=== PATIENT | female | born 1970 | race African-American/Black ===

== ENCOUNTER 2023-04-16 09:54 | Emergency (ER) | payer BC, SELFPAY ==
[2023-04-16 10:00] VITALS: BP 132/91
--- NOTE | 2023-04-16 10:28 | ED.GENMED ---
History of Present Illness
General
Chief Complaint: Chest Pain
Source: patient
Exam Limitations: none
Time Seen by Provider: 04/16/23 10:14
Nursing documentation reviewed up to this point in time: agreed with
Travel History
Have you had any contact with someone who has COVID-19?: No
Do you have any symptoms of coronavirus? Fever > 100 degrees, chills, cough, shortness of breath, sore throat, loss of taste or smell, muscle aches, or headache?: No
History of Present Illness
History of Present Illness:
pt is a 52 y/o F with h/o hypothyroid, borderline dm, on meds for weight loss; recently told she has high cholesterol but didn't start meds
here with left sided chest tightness that began yesterday am around 10 am when she was at work. 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
the symptoms felt like pressure or heaviness/tightness and she thought maybe she just had gas but ultimately didn't 'feel right' and asked her boss if she could go home
she didn't take anything for symptoms which did persist.
she went to sleep and woke up at 3 am (because of insomnia, chrnoic) and had the symptoms then too. she just 'doesn't feel right' and now has pain in her epigastric LUQ and her back
it is not associated with nausea, vomiting, anorexia, diarrhea, fever, chills,, cough. but she does feel it slightly worse with deep breathing
has chronic oncsiptation
last BM today
just upped her mounjaro dose which she has been on since nov 2022 for weight loss.
Past History
Past History
ED Past Medical History: Hypercholesterolemia, Hypothyroidism and Other (Borderline dm)
Review of Systems
Review of Systems
Allergies reviewed?: Yes
All Other Systems: Not applicable
Phy Exam
Physical Exam
Physical Exam:
GENERAL: Alert , in no apparent distress
EYE: pupils equal and reactive
NECK: Supple
ENT: o/p clr, mmm.
CARDIAC: Regular rate and rhythm .
chest wall: notnender, no rash
LUNGS: Clear breath sounds bilaterally, no acute respiratory distress, no wheezes/rales/rhonchi
back: nontender no rash
ABDOMEN: Soft, without focal tenderness, no r/g, no cvat, normal bowel sounds
NEUROLOGICAL: Alert and oriented, no focal neuro deficits
SKIN: Warm and dry, skin intact.
MUSCULOSKELETAL: No edema, well perfused. neg carolina's sign
PSYCH: Normal and appropriate interaction.
Scores
Heart Score for Chest Pain Patients
STEMI patient?: No
History: Slightly or Non-Suspicious
ECG: Normal
Age: >45 - <65 years
Risk Factors: 1 or 2 Risk Factors
Troponin: </= Normal Limit
Heart Score for Chest Pain Patients: 2
Heart Score Risk: 2.5% MACE over next 6 weeks
Course
Orders/Labs/Results
Orders:
Orders
04/16/23 09:56
EKG [Electrocardiogram (*1)] Urgent
Reason for Study: Chest Pain
EKG- Treatment ONCE
04/16/23 10:27
Cardiac Monitoring- Treatment ONCE
TSH Urgent
04/16/23 10:34
Complete Blood Count/With Diff Urgent
Comprehensive Metabolic Panel Urgent
D-Dimer Urgent
Lipase Urgent
Troponin I Urgent
04/16/23 10:36
Add On- LAB Urgent
Tests Added?: TSH
04/16/23 11:16
CR Chest - 2 Views Urgent
Comment:
Reason For Exam: chest tightness
US Abdomen Complete/Upper Urgent
Comment:
Reason For Exam: upper abd pain
04/16/23 11:28
Mag Hydrox/Al Hydrox/Simeth [Maalox] 30 ml Phenobarb/Hyoscy/Atropine/Scop [] 10 ml PO NOW
04/16/23 11:33
Mag Hydrox/Al Hydrox/Simeth [Maalox] 30 ml .ROUTE .STK-MED ONE
Phenobarb/Hyoscy/Atropine/Scop [] 10 ml .ROUTE .STK-MED ONE
Abnormal Lab Results
04/16/23
10:34
Absolute Monos (auto) 0.7 H 10^3/uL
(0.1-0.6)
AST 40 H U/L
(14-36)
ALT 40 H U/L
(0-35)
04/16/23 10:34
04/16/23 10:34
Vital Signs
Initial and Last Documented VS:
Initial Vital Signs
Temp Pulse Resp BP Pulse Ox
98 F 99 16 132/91 99
04/16/23 10:00 04/16/23 10:00 04/16/23 10:00 04/16/23 10:00 04/16/23 10:00
Last Documented Vital Signs
Temp Pulse Resp BP Pulse Ox
98 F 88 21 116/79 98
04/16/23 10:00 04/16/23 12:30 04/16/23 11:30 04/16/23 12:30 04/16/23 11:30
MDM/Problems Addressed
Differential Diagnosis Includes:
chest wall pain, gerd, ACS, PE, pancreatitis
MDM/Problems Addressed:
52 y/o F with h/o GERD
prediabetic, hld
here with chest discomfort since yesterday am, fairly constant, not made worse with exertion or breathing but feels like a tightness
has gerd but didn't tyr any meds for it
she feels anxious about it; is under alot of stress at work
on exam well appearing, stable vitals
CV/abd exam normal
ekg normal no st elevation/depression, no tachycardia
labs reassuring, neg d dimer, neg trop
cxr clera
US neg
d/c home with f/u GI/cards.
stabe for discharge.
*Critical Care Note
Total Time (30-74mins, 75-104mins- exclusive of procedures): Not Applicable
ED Attending Note
-
Portions of this chart may have been created with voice recognition software.� Occasional wrong word or��sound alike� substitutions may have occurred due to the inherent limitations of voice recognition software.
Discharge Plan
Departure
Patient Disposition: Home (Routine Discharge)
Date of Disposition: 04/16/23
Time of Disposition: 12:46
Patient with high blood pressure during this ER visit?: No
Condition: Fair
Covid-19: Not Applicable
Discharge Problem:
Chest pain
Instructions: Chest Pain PCP Follow Up
Referrals:
Harry Portillo, DO [Active] - Follow up in 5-7 days (CARDS)
Robby Lance, DO [Family Provider] - Follow up in 2-3 days
Activity Restrictions/Additional Instructions:
WE ARE NOT SURE THE CAUSE OF YOUR SYPMTOMS
YOUR WORK UP HERE WAS NEGATIVE FOR EMERGENCIES
YOU CAN TRY MAALOX 2-3 TIMES A DAY NEEDED OR PEPCID 20 MG TWICE A DAY (OVER THE COUNTER) FOR A WEEK TO SEE IF THIS HELPS
FOLLOW UP WITH CARDIOLGOY AN OUTPATIENT
YOU CAN ALSO CONSIDER FOLLOWING UP WITH STAFF EDUCATOR
RETURN FOR: SEVERE PAIN, FEVER, VOMITING, BLACK STOOL, SHORNTESS OF BREATH OR ANY CONCERNS.
Interventions
Interventions:
*Risk Screen - Suicide Last Done: 04/16/23 10:00
*General Assessment Last Done: 04/16/23 10:00
*Neglect/Abuse Screening Last Done: 04/16/23 10:00
ED- Fall Risk Assessment Last Done: 04/16/23 11:47
*Nursing Disposition Last Done: 04/16/23 12:59
ED- Cardiac Assessment Last Done: 04/16/23 10:23
Discharge Date and Time
Discharge Date/Time: 04/16/23 12:59
[2023-04-16 10:30] VITALS: BP 129/87
[2023-04-16 10:41] LABS: % Basophils 0.6 % (0-2); % Eosinophils 3.4 % (0-6); % Immature Granulocytes 0.3 % (0-0.5); % Lymphocytes 33.5 % (20.5-51.1); % Monocytes 9.2 % (1.7-9.3); Absolute Eosinophils 0.2 10^3/uL (0-0.7); Absolute Lymphocytes 2.4 10^3/uL (1.2-3.4); Absolute Monocytes 0.7 10^3/uL (0.1-0.6); Absolute Neutrophils 3.8 10^3/uL (1.4-6.5); Hematocrit 38.2 % (37.0-47.0); Hemoglobin 13.1 g/dL (12.0-16.0); Mean Corp Hgb Conc. 34.3 g/dL (33.0-37.0); Mean Corpuscular Hgb 30.5 pg (27.0-31.0); Mean Corpuscular Volume 88.8 fL (81.0-99.0); Mean Platelet Volume 9.8 fL (7.4-10.4); Nucleated Red Blood Cells % 0 %; Platelet Count 256 10^3/uL (130-400); Red Cell Dist. Width 13.2 % (11.5-14.5); White Blood Cell Count 7.1 10^3/uL (4.8-10.8)
[2023-04-16 10:59] LABS: D-Dimer 0.32 ug/mlFEU (0.00-0.50)
[2023-04-16 11:00] VITALS: BP 129/81
[2023-04-16 11:02] LABS: ALT (SGPT) 40 U/L (0-35); AST (SGOT) 40 U/L (14-36); Albumin 4.2 g/dl (3.5-5.0); Alkaline Phosphatase 66 U/L (38-126); Blood Urea Nitrogen 12 mg/dl (7-17); Calcium 9.2 mg/dl (8.4-10.2); Carbon Dioxide 22 mmol/L (22-30); Chloride 105 mmol/L (98-107); Glucose 94 mg/dl (70-99); Lipase 140 U/L (23-300); Potassium 4.1 mmol/L (3.5-5.1); Sodium 135 mmol/L (135-145); Total Bilirubin 0.6 mg/dl (0.2-1.3); Total Protein 7.5 g/dl (6.3-8.2); eGFR > 60.00
[2023-04-16 11:14] LABS: Troponin I < 0.012 ng/ml
[2023-04-16] MEDS: MAALOX 40 PO (11:34)
[2023-04-16 12:20] LABS: TSH 2.57 uIU/ml (0.47-4.68)
[2023-04-16 12:30] VITALS: BP 116/79
== END 2023-04-16 12:59 | disposition home or self-care (01) ==
LOC: EMR 09:54
PROVIDERS: Physician Assistant; EMERGENCY PHYSICIAN Emergency Medicine; FAMILY PHYSICIAN Family Medicine
DX: R07.89 Other chest pain (principal); R10.13 Epigastric pain; R10.12 Left upper quadrant pain; G47.00 Insomnia, unspecified; M54.9 Dorsalgia, unspecified; E03.9 Hypothyroidism, unspecified; E78.00 Pure hypercholesterolemia, unspecified; K59.09 Other constipation; J45.909 Unspecified asthma, uncomplicated; K21.9 Gastro-esophageal reflux disease without esophagitis; M19.90 Unspecified osteoarthritis, unspecified site; F32.A Depression, unspecified; F41.9 Anxiety disorder, unspecified; Z91.013 Allergy to seafood
CPT/HCPCS: 99285; 71046; 76700; 80053; 83690; 84443; 84484; 85025; 85379; 93005

== ENCOUNTER → 2023-06-17 12:49 | Outpatient (REF) | payer BC, SELFPAY | LOC: WDC 12:49 | PROVIDERS: ATTENDING PHYSICIAN Family Medicine | DX: Z12.31 Encounter for screening mammogram for malignant neoplasm of breast (principal) | CPT/HCPCS: 77063; 77067 ==

== ENCOUNTER 2024-07-18 10:43 | Emergency (ER) | payer BC, SELFPAY ==
[2024-07-18 10:45] VITALS: BP 127/78
[2024-07-18 11:55] LABS: % Basophils 0.6 % (0-2); % Eosinophils 3.2 % (0-6); % Immature Granulocytes 0.2 % (0-0.5); % Monocytes 13.1 % (1.7-9.3); % Neutrophils 38.9 % (42.2-75.2); Absolute Eosinophils 0.2 10^3/uL (0-0.7); Absolute Lymphocytes 2.1 10^3/uL (1.2-3.4); Absolute Monocytes 0.6 10^3/uL (0.1-0.6); Absolute Neutrophils 1.8 10^3/uL (1.4-6.5); Hematocrit 38.9 % (37.0-47.0); Mean Corp Hgb Conc. 33.4 g/dL (33.0-37.0); Mean Corpuscular Hgb 30.4 pg (27.0-31.0); Mean Corpuscular Volume 91.1 fL (81.0-99.0); Mean Platelet Volume 9.8 fL (7.4-10.4); Nucleated Red Blood Cells % 0 %; Platelet Count 224 10^3/uL (130-400); Red Blood Cell Count 4.27 10^6/uL (4.20-5.40); Red Cell Dist. Width 13.1 % (11.5-14.5); White Blood Cell Count 4.7 10^3/uL (4.8-10.8)
[2024-07-18 11:58] LABS: HCG, Serum Qualitative Screen Negative
[2024-07-18 11:59] LABS: Urine Albumin Negative (Neg - Trace); Urine Bilirubin Negative (Negative); Urine Character Clear (Clear); Urine Color Yellow; Urine Glucose Negative (Negative); Urine Ketone Negative (Negative); Urine Leukocyte Negative (Negative); Urine Nitrite Negative (Negative); Urine Occult Blood Negative (Negative); Urine Specific Gravity 1.005 (<1.030); Urine Urobilinogen Negative (Neg - 1+)
[2024-07-18 12:03] LABS: ALT (SGPT) 31 U/L (0-35); AST (SGOT) 28 U/L (14-36); Albumin 4.5 g/dl (3.5-5.0); Alkaline Phosphatase 46 U/L (38-126); Blood Urea Nitrogen 12 mg/dl (7-17); Calcium 9.6 mg/dl (8.4-10.2); Carbon Dioxide 28 mmol/L (22-30); Chloride 106 mmol/L (98-107); Glucose 89 mg/dl (70-99); Lipase 168 U/L (23-300); Potassium 4.2 mmol/L (3.5-5.1); Sodium 140 mmol/L (135-145); Total Bilirubin 0.5 mg/dl (0.2-1.3); eGFR > 60.00
[2024-07-18] MEDS: TORADOL 30 MG IV (12:29)
--- NOTE | 2024-07-18 13:30 | ED.GENMED ---
History of Present Illness
General
Chief Complaint: Abdominal Pain
Source: patient
Exam Limitations: none
Time Seen by Provider: 07/18/24 11:45
Nursing documentation reviewed up to this point in time: agreed with
History of Present Illness
History of Present Illness:
pt is a 54 y/o F with h/o psoriatic arthritis on embrel, hiatal hernia, GERD, hypothyroid
here with L upper abd pain x 5 days
felt bloated and had some soreness in upper abdomen across the abdomen intiially but it localized to L lower ribs and L upper abd and she arriaga had pain for 4 days with tenderness with palpation; she feels sore when she pushes there; she has been able
to eat normally, no relation of pain to eating
also no nauesa/vomiting, hematuria, dysuria, fever, chills, chest pain, pleuritic pain, syncope, flank pain,
went to and sent here today
she has not tired anything for pain
she also had neg urinalysis at and i was able to view this
Past History
Past History
ED Past Medical History: Hypercholesterolemia, Hypothyroidism and Other (Borderline dm; psoriatic arthritis)
Social History
Tobacco: Non-smoker
Review of Systems
Review of Systems
Allergies reviewed?: Yes
All Other Systems: Not applicable
Phy Exam
Physical Exam
Physical Exam:
GENERAL: Alert , in no apparent distress
EYE: pupils equal and reactive
NECK: Supple
ENT: o/p clr, mmm.
CARDIAC: Regular rate and rhythm .
ribs normal mil dtenderness to palpation
LUNGS: Clear breath sounds bilaterally, no acute respiratory distress, no wheezes/rales/rhonchi
ABDOMEN: Soft, minimal LUQ tenderness; no rash, no r/g, no cvat, normal bowel sounds
no tenderness to the cva region or back
NEUROLOGICAL: Alert and oriented, no focal neuro deficits
SKIN: Warm and dry, skin intact. no rash
MUSCULOSKELETAL: No edema, well perfused. neg carolina's sign
PSYCH: Normal and appropriate interaction.
Course
Orders/Labs/Results
Orders:
Orders
07/18/24 11:35
Test Result ONCE
07/18/24 11:39
Complete Blood Count/With Diff Urgent
Comprehensive Metabolic Panel Urgent
HCG, Serum Qualitative Screen Urgent
Lipase Urgent
Urinalysis Reflex To Culture Urgent
Date Specimen was Collected: 07/18/24
Time Specimen was Collected: 11:35
07/18/24 12:17
CT Abd/Pel (IV only)-DH only Urgent
Comment:
Reason For Exam: left abdominal pain x 5 days
Ketorolac [Toradol] 30 mg IV NOW STA
07/18/24 13:32
Electrocardiogram (*1) Urgent
Reason for Study: Abdominal Pain
EKG- Treatment ONCE
Abnormal Lab Results
07/18/24
11:39
WBC 4.7 L 10^3/uL
(4.8-10.8)
Neutrophils % 38.9 L %
(42.2-75.2)
Monocytes % 13.1 H %
(1.7-9.3)
07/18/24 11:39
07/18/24 11:39
Vital Signs
Initial and Last Documented VS:
Initial Vital Signs
Temp Pulse Resp BP Pulse Ox
36.5 C 67 18 127/78 97
07/18/24 10:45 07/18/24 10:45 07/18/24 10:45 07/18/24 10:45 07/18/24 10:45
Last Documented Vital Signs
Temp Pulse Resp BP Pulse Ox
36.5 C 67 18 127/78 97
07/18/24 10:45 07/18/24 10:45 07/18/24 10:45 07/18/24 10:45 07/18/24 10:45
MDM/Problems Addressed
Differential Diagnosis Includes:
constipation, pancreaitis, kidney stone, diverticulitis, colitis, gastritis, PUD, msk pain
MDM/Problems Addressed:
54 y/o F
here from for LUQ pain x 5 days;
constant
worse with palpation
no rash
moving bowels
no fever/urinary sypmtoms/vomiting
looks comfortable wellappearing
mild tendenrss LUQ and L loewr ribs
no rash
no cva tendenress
ua neg
labs reassuring
ctap incidental findings d/w pt
no cause fo pain identified
ekg reassuring NSR no ischemia
could be gastritis vs MSK
pepcid, tylenol
d/c home
*Critical Care Note
Total Time (30-74mins, 75-104mins- exclusive of procedures): Not Applicable
ED Attending Note
-
Portions of this chart may have been created with voice recognition software.� Occasional wrong word or��sound alike� substitutions may have occurred due to the inherent limitations of voice recognition software.
Discharge Plan
Departure
Patient Disposition: Home (Routine Discharge)
Date of Disposition: 07/18/24
Time of Disposition: 14:11
Patient with high blood pressure during this ER visit?: No
Condition: Fair
Covid-19: Not Applicable
Discharge Problem:
Abdominal pain
Instructions: Abdominal Pain
Referrals:
Robby Lance, [Family Provider] - Follow up in 2-3 days
Activity Restrictions/Additional Instructions:
WE ARE NOT SURE THE CAUSE OF YOUR PAIN
YOU CAN START TAKING OVER THE COUNTER PEPCID 20 MG TWICE A DAY FOR A WEEK OR SO TO SEE IF THIS HELPS
TRY TYLENOL OR MOTRIN FOR PAIN WELL
MAKE SURE TO EAT A HIGH FIBER DIET
STAY HYDRATED
FOLLOW UP WITH YOUR DOCTOR NEXT WEEK
YOU HAD SOME INCIDENTAL FINDIGNS ON CAT SCAN TO BE AWARE OF BUT NOTHING TO EXPLAIN YOUR PAIN
RETURN FOR: SEVERE WICHO, TROUBLE BREATHING, SHORTNESS OF BREATH, RASH, VOMITING, ETC.
Interventions
Interventions:
*Risk Screen - Suicide Last Done: 07/18/24 10:44
*General Assessment Last Done: 07/18/24 10:45
*Neglect/Abuse Screening Last Done: 07/18/24 10:44
*ED COVID-19 Vaccine History Last Done: 07/18/24 10:45
*Nursing Disposition Last Done: 07/18/24 14:23
[facility]-Fqyiai-Wnrgpnbrjg Assessment Last Done: 07/18/24 11:35
Discharge Date and Time
Discharge Date/Time: 07/18/24 14:23
Print Language: GEORGIAN
== END 2024-07-18 14:23 | disposition home or self-care (01) ==
LOC: EMR 10:43
PROVIDERS: EMERGENCY PHYSICIAN Emergency Medicine; FAMILY PHYSICIAN Family Medicine
DX: R10.12 Left upper quadrant pain (principal); R14.0 Abdominal distension (gaseous); R07.81 Pleurodynia; L40.50 Arthropathic psoriasis, unspecified; K44.9 Diaphragmatic hernia without obstruction or gangrene; K21.9 Gastro-esophageal reflux disease without esophagitis; E03.9 Hypothyroidism, unspecified; E78.00 Pure hypercholesterolemia, unspecified; R73.03 Prediabetes; J45.909 Unspecified asthma, uncomplicated; F41.9 Anxiety disorder, unspecified; F32.A Depression, unspecified; Z91.013 Allergy to seafood
CPT/HCPCS: 99284; 96374; 74177; 80053; 81003; 83690; 84703; 85025; 93005; Q9967